=== PATIENT | female | born 1970 | race Caucasian/White ===

== ENCOUNTER 2025-11-04 02:49 | Emergency (ER) | payer OTHER, SELFPAY ==
[2025-11-04 03:01] VITALS: BP 143/83
[2025-11-04 03:11] VITALS: BP 119/95
[2025-11-04 03:12] VITALS: BMI 24.1
--- NOTE | 2025-11-04 03:28 | ED.GENMED ---
History of Present Illness
General
Chief Complaint: Heart Rate Problem
Source: patient and spouse
Exam Limitations: none
Time Seen by Provider: 11/04/25 03:18
Nursing documentation reviewed up to this point in time: agreed with
History of Present Illness
History of Present Illness:
55-year-old female with a past medical history as noted presents to the ER for evaluation of palpitations. Patient reports symptoms have been ongoing for about 2 weeks. She describes episodes where she feels her heart 'flopping around' as well as
episodes of tachycardia�she said tonight she woke up with racing heart that lasted for few minutes and seems to have resolved. She also reports recently she has had some mild lightheadedness. She has hot flashes but this has been an ongoing issue
for the past 2 years in the setting of perimenopause. She denies any chest pain, shortness of breath. She denies any recent illness. Denies any swelling in the legs. She denies any known cardiac history but says that she did wear a Holter
monitor in the distant past for palpitations�she says it was ultimately attributed to anxiety and was started on Lexapro which improved her symptoms.
Past History
Past History
ED Past Medical History: Other (Kidney stones)
Social History
Tobacco: Non-smoker
Alcohol: None
Drug: None
Personal:
Living: with family
Employment: Employed
Review of Systems
Review of Systems
All Other Systems: ROS reviewed and negative except as documented in HPI and ROS
Constitutional: Denies fever
Respiratory: Denies trouble breathing
Cardiac: Reports palpitations; Denies chest pain or diaphoresis
ABD/GI: Denies abdominal pain, nausea or vomiting
: Denies flank pain
Musculoskeletal: Denies edema, neck pain or back pain
Neurological: Reports dizzy; Denies headache
Phy Exam
Physical Exam
Physical Exam:
General: Awake, alert, oriented x3; somewhat anxious appearing but in no acute distress
Head: Normocephalic, atraumatic
Eyes: Conjunctiva normal
Throat: Airway intact, handling secretions
Neck: Trachea midline, supple without meningismus
Lungs: Clear to auscultation bilaterally, no wheezing, rales, rhonchi
Heart: Regular rate and rhythm, no murmurs, gallops, or rubs
Abd: Soft, non distended, nontender
Neuro: Grossly intact
Skin: Warm and dry
Extremities: No edema in extremities, equal pulses in all extremities
Scores
Heart Failure Risk
Heart Failure Risk Score: Not Applicable
Heart Score for Chest Pain Patients
STEMI patient?: Not applicable
Withdrawal Assessment of Alcohol
Withdrawal Assessment Completed?: Not applicable
Course
Orders/Labs/Results
Orders:
Orders
11/04/25 02:51
EKG [Electrocardiogram (*1)] Urgent
Reason for Study: Tachycardia
EKG- Treatment ONCE
11/04/25 03:47
Complete Blood Count/With Diff Urgent
Comprehensive Metabolic Panel Urgent
Magnesium Urgent
Phos [Phosphorus] Urgent
TSH Reflex To Free T4 Urgent
Troponin I Urgent
Abnormal Lab Results
11/04/25
03:47
RBC 4.10 L 10^6/uL
(4.20-5.40)
Hct 35.6 L %
(37.0-47.0)
BUN 21 H mg/dl
(7-17)
Glucose 102 H mg/dl
(70-99)
11/04/25 03:47
11/04/25 03:47
Vital Signs
Initial and Last Documented VS:
Initial Vital Signs
Temp Pulse Resp BP Pulse Ox
36.8 C 65 18 143/83 98
11/04/25 03:01 11/04/25 03:01 11/04/25 03:01 11/04/25 03:01 11/04/25 03:01
Last Documented Vital Signs
Temp Pulse Resp BP Pulse Ox
36.8 C 60 11 119/95 100
11/04/25 03:01 11/04/25 03:45 11/04/25 03:45 11/04/25 03:11 11/04/25 03:45
MDM/Problems Addressed
Differential Diagnosis Includes:
Dysrhythmia, PACs/PVCs, hypothyroidism, electrolyte derangement, anxiety
MDM/Problems Addressed:
55-year-old female presents to the ER for evaluation of palpitations as described above. Vitals and exam as above. EKG here shows sinus rhythm with no ectopy, normal CO interval, normal QTc, no Brugada. Plan to check labs, thyroid studies,
troponin. Will monitor on telemetry. Reassess after the above.
Labs reviewed: CBC and CMP unremarkable. Troponin undetectable. Thyroid studies normal. Patient remains sinus rhythm heart rate in the 60s on the monitor throughout ED observation. No clear negation for hospitalization at this point plan to
discharge with referral to cardiology for outpatient follow-up. All questions answered.
*Pulse Oximetry
SaO2: 100
Oxygen Mode of Delivery: Room air
Patient hypoxic: no (100%)
*EKG
Interpreted by ED Provider?: Yes
Heart Rate: 67
Rate: normal
Rhythm: sinus
Maple: normal axis
Interval: normal interval
QRS Pattern: normal QRS
Ischemia: non-specific ST changes
*Critical Care Note
Total Time (30-74mins, 75-104mins- exclusive of procedures): Not Applicable
Data Reviewed
Source: patient and spouse
ED Attending Note
-
Portions of this chart may have been created with voice recognition software.� Occasional wrong word or��sound alike� substitutions may have occurred due to the inherent limitations of voice recognition software.
Discharge Plan
Departure
Patient Disposition: Home (Routine Discharge)
Date of Disposition: 11/04/25
Time of Disposition: 05:27
Patient with high blood pressure during this ER visit?: Yes
Discharge Problem:
Palpitations
Instructions: Palpitations (DC)
Prescriptions:
No Action
fexofenadine [Kylah Allergy] 180 mg Tablet
180 mg PO HS
progesterone micronized 200 mg Capsule
200 mg PO USEASDIRECTD
Patient Comments:
11/03/23-- out of her cycle, cycle ended day 11/02
trazodone 50 mg Tablet
25 mg PO HSPRN PRN (Reason: sleep)
ibuprofen [Advil] 200 mg Tablet
400 mg PO Q8HPRN PRN (Reason: headaches)
Referrals:
Declan Butler MD [Active, Cardiology] - Call in 1-3 days for appt
Activity Restrictions/Additional Instructions:
Thank you for visiting the Emergency Department at [facility].
1. Please schedule a follow up appointment as directed. Call first thing tomorrow morning to make an appointment.
2. If indicated, please take your medications as instructed and indicated on discharge paperwork.
3. If any of your symptoms do not improve, or persist, or become more severe within 6-12 hours, please return to the emergency department for further care.
4. Please return to the emergency department if you develop a headache, neck pain/stiffness, fever greater than 100.4F, chest pain, shortness of breath, persistent nausea, vomiting, slurred speech, difficulty walking, numbness/tingling, weakness,
signs of infection or any other symptoms that are worrisome to you.
Please call [phone] if you have any questions.
Interventions
Interventions:
*Risk Screen - Suicide Last Done: 11/04/25 02:53
*General Assessment Last Done: 11/04/25 03:13
*Neglect/Abuse Screening Last Done: 11/04/25 03:13
*ED COVID-19 Vaccine History Last Done: 11/04/25 03:13
*ED Influenza Vaccine History Last Done: 11/04/25 03:13
[facility] Fall Risk Assessment Tool Last Done: 11/04/25 03:16
ED- Cardiac Assessment Last Done: 11/04/25 03:13
ED- Pulmonary Assessment Last Done: 11/04/25 03:13
Discharge Date and Time
Print Language: ISRAELI
[2025-11-04 03:59] LABS: Hematocrit 35.6 % (37.0-47.0); Hemoglobin 12.5 g/dL (12.0-16.0); Mean Corp Hgb Conc. 35.1 g/dL (33.0-37.0); Mean Corpuscular Volume 86.8 fL (81.0-99.0); Nucleated Red Blood Cells % 0 %; Platelet Count 242 10^3/uL (130-400); Red Cell Dist. Width 12.1 % (11.5-14.5)
[2025-11-04 04:00] VITALS: BP 106/77
[2025-11-04 04:22] LABS: ALT (SGPT) 20 U/L (0-35); AST (SGOT) 22 U/L (14-36); Albumin 4.3 g/dl (3.5-5.0); Alkaline Phosphatase 49 U/L (38-126); Blood Urea Nitrogen 21 mg/dl (7-17); Calcium 9.4 mg/dl (8.4-10.2); Carbon Dioxide 27 mmol/L (22-30); Chloride 105 mmol/L (98-107); Estimated Creatinine Clearance 67 ml/min; Glucose 102 mg/dl (70-99); Magnesium 1.8 mg/dl (1.6-2.3); Potassium 3.8 mmol/L (3.5-5.1); Sodium 138 mmol/L (135-145); Total Protein 6.9 g/dl (6.3-8.2); eGFR > 60.00
[2025-11-04 04:33] LABS: Troponin I < 0.012 ng/ml
[2025-11-04 05:00] VITALS: BP 104/67
== END 2025-11-04 06:00 | disposition home or self-care (01) ==
LOC: EMR 02:49
PROVIDERS: EMERGENCY PHYSICIAN Emergency Medicine; FAMILY PHYSICIAN Nurse Practitioner Adult Health
DX: R00.2 Palpitations (principal); Z87.442 Personal history of urinary calculi
CPT/HCPCS: 99284; 80053; 83735; 84100; 84443; 84484; 85025; 93005

== ENCOUNTER → 2025-11-21 13:48 | Outpatient (REF) | payer OTHER, SELFPAY | LOC: HWRCS 13:48 | PROVIDERS: ATTENDING PHYSICIAN Internal Medicine Cardiovascular Disease; FAMILY PHYSICIAN Nurse Practitioner Adult Health | DX: R00.2 Palpitations (principal) | CPT/HCPCS: 93306 ==